=== PATIENT | female | born 1960 | race Caucasian/White ===

== ENCOUNTER → 2018-01-21 | Outpatient (CLI) | payer OTHER | LOC: FIMAGING 08:11 | PROVIDERS: ATTEND Surgery | DX: R10.11 Right upper quadrant pain (principal); K80.20 Calculus of gallbladder without cholecystitis without obstruction; K76.9 Liver disease, unspecified ==

== ENCOUNTER 2018-02-10 06:25 | Day surgery (SDC) | payer OTHER ==
[~2018-02-10 06:25] MED LIST: cefOXitin SODIUM 2 GM in NS 100 ML IV ONE
[2018-02-10] MEDS ORDERED: LR 1,000 ML IV ONE (06:45)
[2018-02-10] MEDS ORDERED: LIDOCAINE 1% 2 ML INJ ID PRN (06:45)
[2018-02-10] MEDS ORDERED: BUPIVACAINE 0.5% 30 ML SDV ONE (07:12)
[2018-02-10] MEDS ORDERED: HEPARIN 1000 UNIT/1 ML MDV ONE (07:12)
[2018-02-10] MEDS ORDERED: ceFAZolin 1 GM/5 ML SYR ONE ×2 (07:13→08:09)
--- NOTE | 2018-02-10 07:30 | PDHPUP ---
History & Physical Update H&P update statement: This history and physical update is based on an assessment of the patient which was completed after admission or registration (within 24 hours), but prior to the surgery/procedure. H&P update: H&P reviewed & patient examined, no change in patient's condition since H&P completed
--- NOTE | 2018-02-10 07:34 | PDANEPAE ---
ANE Past Medical History - Cardiovascular History Hx Hypertension: No Hx Arrhythmias: No Hx Chest Pain: No Hx Coronary Artery / Peripheral Vascular Disease: No Hx CHF / Valvular Disease: No Hx Palpitations: No - Pulmonary History Hx COPD: No Hx Asthma/Reactive Airway Disease: No Hx Recent Upper Respiratory Infection: No Hx Oxygen in Use at Home: No Hx Sleep Apnea: No Sleep Apnea Screening Result - Last Documented: Negative - Neurologic History Hx Cerebrovascular Accident: No Hx Seizures: No Hx Dementia: No - Endocrine History Hx Diabetes: No - Renal History Hx Renal Disorders: No - Liver History Hx Hepatic Disorders: No - Neurological & Psychiatric Hx Hx Neurological and Psychiatric Disorders: No - Cancer History Hx Cancer: No - Congenital Disorder History Hx Congenital Disorders: No - GI History Hx Gastrointestinal Disorders: Yes Gastrointestinal History Comment: reflux - Other Health History Other Health History: none - Chronic Pain History Chronic Pain: No - Surgical History Prior Surgeries: none in last 5yrs ANE Review of Systems Review of Systems: - Exercise capacity METS (RN): 4 METS ANE Patient History - Allergies Allergies/Adverse Reactions: sulfamethoxazole [From Bactrim] Allergy (Verified 02/09/18 10:42) trimethoprim [From Bactrim] Allergy (Verified 02/09/18 10:42) - Smoking Hx Smoking Status: Former smoker - Family Anes Hx Family Hx Anesthesia Complications: none ANE Labs/Vital Signs - Vital Signs Height: 161.29 cm Weight: 70.307 kg ANE Physical Exam - Airway Mallampati Score: Class 2 - ASA Status ASA Status: I ANE Anesthesia Plan Anesthesia Plan: general endotracheal anesthesia
[2018-02-10] MEDS ORDERED: MIDAZOLAM 2 MG/2 ML VIAL ONE (07:42)
[2018-02-10] MEDS ORDERED: PROPOFOL 200 MG/20 ML VIAL ONE (07:42)
[2018-02-10] MEDS ORDERED: fentaNYL 100 MCG/2 ML INJ ONE ×3 (07:42→09:22)
[2018-02-10] MEDS ORDERED: ROCURONIUM 50 MG/5 ML VIAL ONE (07:43)
[2018-02-10] MEDS ORDERED: ONDANSETRON 4 MG/2 ML VIAL ONE (07:43)
[2018-02-10] MEDS ORDERED: METOCLOPRAMIDE 10 MG/2 ML VIAL ONE (07:43)
[2018-02-10] MEDS ORDERED: SUGAMMADEX SODIUM 200 MG/2 ML VIAL IVP ONE (08:47)
[2018-02-10] MEDS ORDERED: LR 500 ML IV PRN (09:09)
[2018-02-10] MEDS ORDERED: PROMETHAZINE HCL 25 MG/ML INJ IVP PRN (09:09)
[2018-02-10] MEDS ORDERED: HYDROmorphONE/DILAUDID 2 MG/ML INJ IVP PRN (09:09)
[2018-02-10] MEDS ORDERED: NALOXONE HCL 0.4 MG/ML INJ IVP PRN (09:09)
[2018-02-10] MEDS ORDERED: DEXAMETHASONE 4 MG/ML VIAL IVP PRN (09:09)
--- NOTE | 2018-02-10 09:11 | POSTANESTH ---
Post Anesthetic Evaluation Cardiovascular Status: Normal, Stable Respiratory Status: Normal, Stable Level of Consciousness/Mental Status: Can Participate in Eval Pain Control: Adequate, Prn Tx Ordered Nausea/Vomiting Control: Adequate, Prn Tx Ordered Complications Possibly Related to Anesthesia: None Noted
[2018-02-10] MEDS: fentaNYL 100 MCG/2 ML INJ IVP PRN ×2 (09:25→09:34)
[2018-02-10] MEDS ORDERED: oxyCODONE IR 5 MG TAB PO PRN (10:14)
[2018-02-10] MEDS ORDERED: PROMETHAZINE HCL 25 MG/ML INJ ONE (12:00)
[2018-02-10] MEDS ORDERED: HYDROCODONE/APAP 5/325 TAB ONE (14:16)
[2018-02-10] MEDS ORDERED: HYDROCODONE/APAP 5/325 TAB PO PRN (14:22)
[2018-02-10 15:10] VITALS: BP 124/81
--- NOTE | 2018-02-11 08:31 | GOP ---
DATE OF OPERATION: 02/10/2018 SURGEON: Tj Temple MD [employer]ETING MANAGER: HERMINIA Shah. ANESTHESIOLOGIST: Vickey Hanna MD. PREOPERATIVE DIAGNOSIS: Cholelithiasis and chronic cholecystitis. POSTOPERATIVE DIAGNOSIS: Cholelithiasis and chronic cholecystitis. PROCEDURE PERFORMED: LAPAROSCOPIC CHOLECYSTECTOMY FINDINGS: Patient was found to have a markedly inflamed gallbladder with multiple large stones including stones impacted in the cystic duct. The cystic duct was somewhat dilated. There were several adhesions to the gallbladder as well. DESCRIPTION OF PROCEDURE: The patient was taken to the operating room where she received a satisfactory general endotracheal anesthesia by Dr. Hanna. She was placed in supine position, prepped and draped in the usual sterile fashion. A periumbilical incision was made. A Veress needle was inserted. Pneumoperitoneum was established. Trocar was introduced. Laparoscope introduced. Good visualization was obtained. 3 other trocars were placed in the upper abdomen under direct vision. The gallbladder was elevated up. Adhesions were taken down. The cystic triangle was very carefully dissected free. There was a marked amount of inflammation. There were stones in the proximal end of the cystic duct. The cystic duct was totally encircled and dissected free. The cystic artery was identified and multiply hemoclipped and divided. The cystic duct was dissected back toward the common bile duct until the junction was well identified. The stones were milked backward toward the gallbladder. Cystic duct was then multiply hemoclipped and divided. The peritoneum of the gallbladder was incised. The gallbladder was dissected free of the bed and the hepatic fossa and placed in a specimen bag and extracted through the upper midline port site. The wound was thoroughly irrigated. Hemostasis was assured. Trocars removed under direct vision. Trocar sites were closed with 0 Vicryl for the fascia, 4-0 Monocryl subcuticular stitch for the skin. All layers infiltrated with 0.5% Marcaine. Blood loss was negligible. There were no complications. Taken to the recovery room in good condition. /[id number]/MODL MTDD
== END 2018-02-10 14:56 | disposition home or self-care (01) ==
LOC: FSGY 06:25
PROVIDERS: ATTEND Surgery
PROC: 0FT44ZZ Resection of Gallbladder, Percutaneous Endoscopic Approach (ICD-10-PCS; principal; 2018-02-10 08:00)
DX: K80.10 Calculus of gallbladder with chronic cholecystitis without obstruction (principal); K76.89 Other specified diseases of liver; Z87.891 Personal history of nicotine dependence
CPT/HCPCS: J0694; J2250; J2405; J2550; J2704; J2765; J3010